=== PATIENT | female | born 1940 | race Asian ===

== ENCOUNTER 2020-05-16 16:19 | Emergency (ER) | payer OTHER ==
[2020-05-16 16:32] VITALS: TEMP 98.6; BMI 18.6
--- OUTSIDE RECORDS SUMMARY | 2020-05-16 16:44 | XMS ---
:1940 Author Organization [facility] Support Name Relationship Address Phone RE Unavailable Unavailable Unavailable Re-disclosure Warning The records that you are about to access may contain information from federally- assisted alcohol or drug abuse programs. If such information is present, then the following federally mandated warning applies: This information has been disclosed to you from records protected by federal confidentiality rules (42 CFR part 2). The federal rules prohibit you from making any further disclosure of this information unless further disclosure is expressly permitted by the written consent of the person to whom it pertains or as otherwise permitted by 42 CFR part 2. A general authorization for the release of medical or other information is NOT sufficient for this purpose. The Federal rules restrict any use of the information to criminally investigate or prosecute any alcohol or drug abuse patient.The records that you are about to access may contain highly sensitive health information, the redisclosure of which is protected by Article 27-F of the [facility] Public Health law. If you continue you may haveaccess to information: Regarding HIV / AIDS; Provided by facilities licensed or operated by the [facility] Office of Mental Health; or Provided by the [facility] Office for People With Developmental Disabilities. If such information is present, then the following [facility] mandated warning applies: This information has been disclosed to you from confidential records which are protected by state law. State law prohibits you from making any further disclosure of this information without the specific written consent of the person to whom it pertains, or as otherwise permitted by law. Any unauthorized further disclosure in violation of state law may result in a fine or custodial sentence or both. A general authorization for the release of medical or other information is NOT sufficient authorization for further disclosure. Insurance Providers Payer name Policy type Policy ID Covered Covered republican's Policy P destiny / Coverage republican ID relationship to [facility] [employer] ormation type [id number] MEDICARE [id number] SP [id number] 01 1
--- NOTE | 2020-05-16 17:07 | PDOC ---
History of Present Illness - General Chief Complaint: Nasal Bleeding Stated Complaint: BLEEDING Time Seen by Provider: 05/16/20 16:33 - History of Present Illness Initial Comments: HPI: 05/16/20 17:02 79 yo PMH HTN, HLD, presenting with epistaxis. 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 States that she was in the shower and began to have blood come out of her nose, began to also cough up blood and clots. Became l ightheaded but did not fall, hit her head, or have LOC. Bleeding resolved at ER arrival, and she states that she actually feels refreshed now that bleeding seems to have stopped. Very concerned because this has never happened to her before. Does not take any blood thinners, no family history of bleeding. Denies CP, SOB, N/V, fevers/chills, abd pain, constipation/diarrhea. ROS: GENERAL/CONSTITUTIONAL: denies fever, chills, generalized weakness HEAD, EYES, EARS, NOSE AND THROAT: endorses epistaxis. Denies rhinorrhea, nasal congestion, throat pain, throat swelling, difficulty swallowing NEUROLOGIC: denies headache, focal weakness, dizziness, mental status changes CARDIOVASCULAR: endorses lightheadedness. Denies chest pain, syncope, palpitations, irregular heart rate, peripheral edema RESPIRATORY: denies cough, shortness of breath, dyspnea with exertion GASTROINTESTINAL: denies abdominal pain, abdominal distension, nausea, vomiting, diarrhea, constipation GENITOURINARY: denies dysuria, frequency, urgency MUSCULOSKELETAL: denies myalgia, arthralgia, joint swelling, back pain, neck pain SKIN: denies rash, itching PE: Gen: well-developed, well-nourished, NAD Neuro: AAOX4, CN II-XII intact HEENT: atraumatic, normocephalic. Dried blood in nares and on lips, no active bleeding Neck: trachea midline, supple CV: regular rate, regular rhythm, no murmurs, rubs, or gallops Pulm: CTA b/l, no wheezing Abd: soft, non-distended, non-tender MSK: full ROM, intact pulses Extr: no edema, no deformities Skin: warm, dry MDM: One time nose bleed, now resolved. - CBC - watch for two hours until 1900 - if no rebleed, dc for further out patient management 05/16/20 17:42 Daughter at bedside, explained plan to patient and daughter using hot sealing machine operator. They expressed their understanding of the plan. 05/16/20 18:44 CBC unremarkable, no further bleeding. Will dc for further outpatient management. Past History - Reproductive History Is Patient Now?: No - Psycho-Social/Smoking History Smoking History: Never smoked - Substance Abuse Hx (Audit-C & DAST Scrn) How often the patient has a drink containing alcohol: Never Score: In Men: 4 or > Positive; In Women: 3 or > Positive: 0 Screen Result (Pos requires Nsg. Audit-10AR): Negative In the last yr the pt used illegal drug/Rx for NonMed reason: No Score: Yes response is considered Positive: 0 Screen Result (Positive result requires Nsg. DAST-10): Negative *Physical Exam - Vital Signs Last Vital Signs Temp Pulse Resp BP Pulse Ox 98.6 F 85 17 142/90 99 05/16/20 16:24 05/16/20 16:24 05/16/20 16:24 05/16/20 16:24 05/16/20 16:24 ED Treatment Course - LABORATORY CBC & Chemistry Diagram: 05/16/20 17:30 Discharge - Discharge Information Problems reviewed: Yes Clinical Impression/Diagnosis: Bleeding nose Condition: Stable Disposition: HOME - Admission No - Follow up/Referral - Patient Discharge Instructions Patient Printed Discharge Instructions: DI for Nosebleed Additional Instructions: You were seen with a nosebleed. This stopped without intervention, and your labs are unremarkable. Please follow up with your primary care doctor within one week. Return to the ER if you develop new or worsening symptoms. - Post Discharge Activity
[2020-05-16 17:41] LABS: BASO % 0.5 % (0-2.0); EOS % 0.6 % (0-4.5); HEMATOCRIT 37.1 % (32.4-45.2); HEMOGLOBIN 12.3 GM/dL (10.7-15.3); LYMPH % 17.7 % (8-40); MCH 30.9 pg (25.7-33.7); MEAN CELL VOLUME 93.7 fl (80-96); MEAN PLT VOLUME 8.3 fl (7.5-11.1); MONO % 5.1 % (3.8-10.2); NEUT % 76.1 % (42.8-82.8); PLATELET COUNT 166 K/MM3 (134-434); RBC 3.96 M/mm3 (3.60-5.2); RDW 13.4 % (11.6-15.6); WHITE BLOOD COUNT 5.8 K/mm3 (4.0-10.0)
[2020-05-16 18:50] VITALS: BP 123/83; PULSE 74
--- NOTE | 2020-05-16 19:17 | PDOC ---
Documentation entered by Tracy Blood SCRIBE, acting as scribe for Curt Bejarano MD. Curt Bejarano MD: This documentation has been prepared by the Jeremi comer Xhesika, SCRIBE, under my direction and personally reviewed by me in its entirety. I confirm that the documentation accurately reflects all work, treatment, procedures, and medical decision making performed by me. Attending Attestation - Resident Resident Name: Bobby Hernandez - ED Attending Attestation I have performed the following: I have examined & evaluated the patient, The case was reviewed & discussed with the resident, I agree w/resident's findings & plan, Exceptions are as noted - HPI HPI: 05/16/20 17:35 The patient is a 79y/o F with a PMH of HTN and HLD, who presents to the ED with an episode of epistaxis. Pt states she was in the shower and began to have a nose bleed, and started to cough up blood and clots. Pt states she became lightheaded at the sight of the blood for a few seconds but that self resolved. Pt denies any CP, falls, or LOC. Pt states en route to the ED her nose was still bleeding but when she arrived to the ED, the bleeding resolved. Pt denies any complaints while in the ED. Pt denies being on any anticoagulants. Denies trauma to the nose. Otherwise denies any dizziness, headache, focal weakness/numbness, n/v/d, abd pain, LE edema, calf pain Allergies: Per Nursing Records - Physicial Exam PE: 05/16/20 18:47 Agree w resident exam Well appearing, in NAD, AOx3 +dried blood in R nare, no active bleeding, no septal hematoma No bleeding in posterior OP RRR, no MRG CTAB, no rales, wheezing, crackles. Good air movement FROM, 2+ peripheral pulses CN intact, equal strength and sensation b/l - Medical Decision Making 05/16/20 19:00 79yo F presents to the ED with resolved epistaxis No bleeding in ED CBC checked wnl Pt observed for 3hrs with no rebleed She is well appearing and clinically stable for DC home I discussed the physical exam findings, ancillary test results and final diagnoses with the patient. I answered all of the patient's questions. The patient was satisfied with the care received and felt comfortable with the discharge plan and treatment plan. The patient will call their primary care physician within 24 hours to arrange follow-up and will return to the Emergency Department with any new, persistent or worsening symptoms. Discharge - Discharge Information Problems reviewed: Yes Clinical Impression/Diagnosis: Bleeding nose - Follow up/Referral - Patient Discharge Instructions - Post Discharge Activity
== END 2020-05-16 19:08 | disposition home or self-care (01) ==
LOC: JER 16:19
DX: R04.0 Epistaxis (principal)
CPT/HCPCS: 36415; 85025; 99282-25